=== PATIENT | male | born 1950 | race Two or more races ===

== ENCOUNTER 2016-11-13 17:13 | Emergency (ER) | payer SELFPAY ==
[2016-11-13 17:23] VITALS: BMI 25.9
[2016-11-13] MEDS ORDERED: ACETAMINOPHEN 325 MG TABLET (FP) ONE (17:56)
[2016-11-13] MEDS ORDERED: SODIUM CHLORIDE 0.9% 1000 ML INFUS.BAG IV STA (18:21)
--- NOTE | 2016-11-13 18:30 | PDOC ---
History of Present Illness - General History Source: Friend Exam Limitations: No Limitations - History of Present Illness Initial Comments: 11/13/16 20:37 The patient is a 66 year old male, with no significant past medical history who presents to the emergency department with chest pain, fever and headache for the past 4 days. The patient reports L sided chest pain, nonradiating, 5/10 in severity with no associated symptoms. Patient states pain is alleviated with deep inspiration. Patient presents to the ED with son for further evaluation.Patient describes frontal headache with no associated light/sound sensitivity,nausea, vomiting or neck stiffness. Patient denies SOB or cough. Patient denies any recent travel or sick contacts. Upon arrival, vital signs significant for 102.9 and HR of 109. Allergies: NKA Past surgical history: None Social history: None PCP: Has not visited one in 5 years <Selena Pérez - Last Filed: 11/13/16 22:04> <Yo Gutierrez - Last Filed: 11/13/16 23:30> - General Chief Complaint: Chest Pain Stated Complaint: CHEST PAIN Time Seen by Provider: 11/13/16 17:39 Past History <Selena Pérez - Last Filed: 11/13/16 22:04> - Past Medical History Other medical history: denies. - Psycho/Social/Smoking Cessation Hx Suicidal Ideation: No Smoking History: Never smoked <Yo Gutierrez - Last Filed: 11/13/16 23:30> - Past Medical History Allergies/Adverse Reactions: Allergies Allergy/AdvReac Type Severity Reaction Status Date / Time No Known Allergies Allergy Verified 11/13/16 17:19 Home Medications: Ambulatory Orders Levofloxacin [Levaquin -] 500 mg PO DAILY #10 tablet 11/13/16 Review of Systems - Review of Systems Able to Perform ROS?: Yes Comments:: 11/13/16 20:37 CONSTITUTIONAL: + fever. + fatigue EYES: No visual changes ENT: No ear pain, no sore throat CARDIOVASCULAR: + chest pain. No palpitations RESPIRATORY: No cough, no SOB GI: No abdominal pain, no nausea, no vomiting, no constipation, no diarrhea GENITOURINARY: No dysuria, no frequency, no hematuria MUSKULOSKELETAL: No back pain, no joint pain, no myalgias SKIN: No rash NEURO: + headache <Selena Pérez - Last Filed: 11/13/16 22:04> *Physical Exam - Vital Signs Last Vital Signs Temp Pulse Resp BP Pulse Ox 101.6 F H 97 H 18 107/62 97 11/13/16 19:26 11/13/16 19:26 11/13/16 19:26 11/13/16 19:26 11/13/16 19:26 - Physical Exam Comments: 11/13/16 20:38 CONSTITUTIONAL: Well-appearing; well-nourished; in no apparent distress HEAD: Normocephalic; atraumatic EYES: PERRL; EOM intact. No photophobia. ENMT: External appears normal; normal oropharynx NECK: (-)Negative Kernig brudzinski sign. Supple; nontender; no cervical lymphadenopathy CARD: +Tachycrdic. +Regular. +3/6 Systolic murmur.Normal S1, S2; No rubs, or gallops RESP: Normal chest excursion with respiration; breath sounds clear and equal bilaterally; no wheezes, rhonchi, or rales ABD: Soft, non-distended; non-tender; no palpable organomegaly, no palpable hernias EXT: Normal ROM in all four extremities; non-tender to palpation; distal pulses intact SKIN: Warm, dry, no petechiae. NEURO: No focal neurological deficiencies. <BetoSelena - Last Filed: 11/13/16 22:04> - Vital Signs Last Vital Signs Temp Pulse Resp BP Pulse Ox 102.9 F H 106 H 18 122/71 94 L 11/13/16 17:19 11/13/16 17:35 11/13/16 17:35 11/13/16 17:35 11/13/16 18:11 <Yo Gutierrez - Last Filed: 11/13/16 23:30> ED Treatment Course - LABORATORY CBC & Chemistry Diagram: 11/13/16 18:35 11/13/16 18:35 - ADDITIONAL ORDERS Additional order review: Laboratory Results 11/13/16 11/13/16 11/13/16 18:46 18:35 18:35 INR PTT (Actin FS) VBG pH 7.44 H POC VBG pCO2 39.2 POC VBG pO2 30.5 Mixed VBG HCO3 26.1 H Sodium Potassium Chloride Carbon Dioxide Anion Gap BUN Creatinine Creat Clearance w eGFR Random Glucose Lactic Acid 1.3 Calcium Total Bilirubin AST ALT Alkaline Phosphatase Creatine Kinase Creatine Kinase Index CK-MB (CK-2) Troponin I Total Protein Albumin Urine Color Urine Appearance Urine pH Ur Specific [place] Urine Protein Urine Glucose (UA) Urine Ketones Urine Blood Urine Nitrite Urine Bilirubin Urine Urobilinogen Ur Leukocyte Esterase Urine RBC Urine WBC Urine Mucus Blood Type A POSITIVE Antibody Screen Negative 11/13/16 11/13/16 11/13/16 18:35 18:35 18:35 INR 1.32 H PTT (Actin FS) 34.8 H VBG pH POC VBG pCO2 POC VBG pO2 Mixed VBG HCO3 Sodium 132 L Potassium 4.2 Chloride 99 Carbon Dioxide 25 Anion Gap 8 BUN 17 Creatinine 1.0 Creat Clearance w eGFR > 60 Random Glucose 167 H Lactic Acid Calcium 8.5 Total Bilirubin 0.9 AST 25 ALT 40 Alkaline Phosphatase 66 Creatine Kinase 249 Creatine Kinase Index 0.4 CK-MB (CK-2) < 1.000 Troponin I < 0.02 Total Protein 7.8 Albumin 3.5 Urine Color Yellow Urine Appearance Clear Urine pH 5.0 Ur Specific [place] 1.020 Urine Protein Negative Urine Glucose (UA) 2+ H Urine Ketones Trace H Urine Blood 1+ H Urine Nitrite Negative Urine Bilirubin Negative Urine Urobilinogen Negative Ur Leukocyte Esterase Negative Urine RBC None Urine WBC 1 Urine Mucus Rare Blood Type Antibody Screen 11/13/16 18:35 RBC 4.17 MCV 92.7 MCHC 34.3 RDW 13.6 MPV 8.9 Neutrophils % 74.7 Lymphocytes % 16.2 Monocytes % 8.9 Eosinophils % 0.0 Basophils % 0.2 - Medications Given in the ED: ED Medications Discontinued Medications Generic Name Dose Route Start Last Admin Trade Name Freq PRN Reason Stop Dose Admin Acetaminophen 975 mg 11/13/16 19:12 11/13/16 18:00 Tylenol - PO 11/13/16 19:13 975 mg NOW ONE Administration Sodium Chloride 500 ml 11/13/16 18:21 11/13/16 18:25 Normal Saline - IV 11/13/16 18:22 500 ml ONCE STA Administration <Selena Pérez - Last Filed: 11/13/16 22:04> - LABORATORY CBC & Chemistry Diagram: 11/13/16 18:35 11/13/16 18:35 <Yo Gutierrez - Last Filed: 11/13/16 23:30> Medical Decision Making - Medical Decision Making 11/13/16 22:01 Dr. Wells paged via phone answering service. Awaiting call back. 11/13/16 22:04 Dr. Wells responded the page and the patient's case was discussed. <Selena Pérez - Last Filed: 11/13/16 22:04> - Medical Decision Making 11/13/16 21:36 Patient is a well-appearing 66-year-old male who presents to the ER with fever for the past 4 days, mild frontal headache and nonpleuritic left-sided chest discomfort. In the ER, patient is awake and alert, mildly tachycardic and febrile to 102.9. Serial physical exams reveal no evidence of meningismus, lungs are clear, there is no abdominal tenderness, no lower extremity edema or petechial rash. CBC is within normal limit. CMP is unremarkable. Urinalysis reveals no evidence of pyuria. Chest x-ray revealed elevated left hemidiaphragm and some linear atelectasis on the right. Patient underwent CTA of chest which revealed a wedge-shaped infiltrate to the left upper lobe which may represent an infarct versus infiltrate. The study was suboptimal for PE. Patient's currently receiving ceftriaxone and Zithromax. i discussed the CT findings with the patient and advised him of the need for admission. He is expressed understanding of his medical condition but is steadfastly refusing. I used a [employer] cistern room operator #[id number] and explained the danger associated with the patient 's condition which includes but is not limited to severe infection, recurrent pulmonary emboli and pulmonary infarctions and . Patient's expressed understanding but is still refusing. Patient's son was noted to be at bedside and also expressed understanding the patient's condition. Patient's friend was present at bedside as well and expressed understanding patient's condition as well will discharge with Levaquin by mouth with urgent follow-up. <Yo Gutierrez - Last Filed: 11/13/16 23:30> *DC/Admit/Observation/Transfer - Attestations Scribe Attestion: 11/13/16 20:40 Documentation prepared by Selena Pérez, acting as medical clerical assistant for Yo Gutierrez MD <Selena Pérez - Last Filed: 11/13/16 22:04> - Attestations Physician Attestion: 11/13/16 21:36 The documentation was prepared by the scribe under my direct supervision. I have reviewed the documentation which correctly represents the findings, medical decision-making and critical action taken by me. <Yo Gutierrez - Last Filed: 11/13/16 23:30> Diagnosis at time of Disposition: Pneumonia Qualifiers: Pneumonia type: due to unspecified organism Laterality: left Lung location: upper lobe of lung Qualified Code(s): J18.1 - Lobar pneumonia, unspecified organism - Discharge Dispostion Disposition: AGAINST MEDICAL ADVICE Condition at time of disposition: Fair - Referrals Referrals: [facility] [Provider Group] - Patient Instructions Printed Discharge Instructions: DI for Pneumonia -- Adult Additional Instructions: Your leaving AGAINST MEDICAL ADVICE. You're at risk for severe infection, blood clots in for the lung damage and even . Take antibiotics as directed. Follow-up with medical clinic promptly. Return immediately for worsening symptoms. Print Language: PANAMANIAN
[2016-11-13 18:47] LABS: VENOUS PH 7.44 (7.32-7.42)
[2016-11-13 18:50] LABS: URINE APPEARANCE CLEAR; URINE BILIRUBIN NEGATIVE (NEGATIVE); URINE BLOOD 1+ (NEGATIVE); URINE COLOR YELLOW; URINE GLUCOSE (UA) 2+ (NEGATIVE); URINE KETONE TRACE (NEGATIVE); URINE LEUK ESTERASE NEGATIVE (NEGATIVE); URINE NITRITE NEGATIVE (NEGATIVE); URINE PROTEIN NEGATIVE (NEGATIVE); URINE UROBILINOGEN NEGATIVE mg/dL (0.2-1.0)
[2016-11-13 18:50] LABS: VENOUS BLOOD GAS HCO3 26.1 meq/L (19-25)
[2016-11-13 18:54] LABS: BASOPHIL 0.2 % (0-2.0); MCH 31.8 pg (25.7-33.7); MCHC 34.3 g/dl (32.0-35.9); MEAN CELL VOLUME 92.7 fl (80-96); MEAN PLT VOLUME 8.9 fl (7.5-11.1); NEUTROPHILS 74.7 % (42.8-82.8); PLATELET COUNT 235 K/MM3 (134-434); RDW 13.6 % (11.9-15.9); WHITE BLOOD COUNT 11.9 K/mm3 (4.0-10.0)
[2016-11-13 18:55] LABS: URINE MUCUS RARE; URINE WBC 1 /hpf (3-5)
[2016-11-13 19:01] LABS: INR 1.32 (0.82-1.09); PROTHROMBIN TIME (PATIENT) 14.6 SEC (9.98-11.88)
[2016-11-13 19:03] LABS: ALBUMIN 3.5 g/dl (3.4-5.0); ANION GAP 8 (8-16); CALCIUM 8.5 mg/dL (8.5-10.1); CO2 25 mmol/L (21-32); GLUCOSE,RANDOM 167 mg/dL (74-106); SGOT/AST 25 U/L (15-37); SGPT/ALT 40 U/L (12-78)
[2016-11-13 19:04] LABS: ACTIVATED PTT 34.8 SECONDS (26.9-34.4)
[2016-11-13 19:06] LABS: ALK PHOS 66 U/L (45-117); BILIRUBIN,TOTAL 0.9 mg/dL (0.2-1.0); CPK 249 IU/L (39-308); TOT PROT 7.8 g/dl (6.4-8.2); TROPONIN I < 0.02 ng/ml (0.00-0.05)
[2016-11-13] MEDS ORDERED: ACETAMINOPHEN 500 MG TABLET (FP) PO ONE (19:12)
[2016-11-13] MEDS ORDERED: SODIUM CHLORIDE 1,000 ML IV STA (20:59)
[2016-11-13] MEDS ORDERED: CEFTRIAXONE 1 GM in DEXTROSE 5%-WATER - 50 ML IVPB ONE (21:07)
[2016-11-13] MEDS ORDERED: AZITHROMYCIN IVPB 500 MG in DEXTROSE 5%-WATER - 250 ML IVPB ONE (21:07)
[2016-11-13] MEDS ORDERED: CEFTRIAXONE 50 ML ONE (21:27)
[2016-11-13] MEDS ORDERED: AZITHROMYCIN IVPB 250 ML IVPB ONE (21:28)
[2016-11-13 23:40] VITALS: BP 107/62; PULSE 82; TEMP 98.5
--- NOTE | 2016-11-15 13:54 | EKG ---
Test Reason : Blood Pressure : / mmHG Vent. Rate : 105 BPM Atrial Rate : 105 BPM P-R Int : 182 ms QRS Dur : 084 ms QT Int : 318 ms P-R-T Axes : 044 005 021 degrees QTc Int : 420 ms SINUS TACHYCARDIA POSSIBLE LEFT ATRIAL ENLARGEMENT BORDERLINE ECG NO PREVIOUS ECGS AVAILABLE Confirmed by ALLISON BIGGS MD ([id number]) on 11/15/2016 1:54:20 PM Referred By: Confirmed By:ALLISON BIGGS MD
== END 2016-11-13 23:40 | disposition left against medical advice (07) ==
LOC: JER 17:13
DX: J18.1 Lobar pneumonia, unspecified organism (principal)
CPT/HCPCS: 36415; 71020-TC; 71275-TC; 80053; 81003; 81015; 82553; 82803; 83605; 84484; 85025; 85610; 85730; 86850; 86900; 86901; 87040; 87086; 93005; 93010; 99284-25

== ENCOUNTER 2017-02-22 19:25 | Emergency (ER) | payer OTHER ==
[2017-02-22 19:37] VITALS: BP 137/91; PULSE 88; TEMP 99.5; BMI 23.9
--- NOTE | 2017-02-22 19:42 | PDOC ---
History of Present Illness - General History Source: Patient Exam Limitations: No Limitations - History of Present Illness Initial Comments: 02/22/17 19:46 The patient is a 67-year-old male, with a significant past medical history of HTN (not on any medication), who presents to the ED with a sore throat since Tuesday. Pt measured his temperature at home to be 101 and states that he has been taking Advil. He is also experiencing difficulty swallowing and speaking due to progressively worsening throat pain. Daughter advised the pt to come to the ED because he had recent case of pneumonia in November of this year. He reports decrease in appetite. He denies any nausea, vomiting, diarrhea, or abdominal pain. He denies any urinary changes or changes in his bowel movements. PAST MEDICAL HISTORY: HTN (not on any medication) PAST SURGICAL HISTORY: no significant history FAMILY HISTORY: no pertinent history SOCIAL HISTORY: Pt lives with family. MEDICATIONS: reviewed ALLERGIES: As per nursing notes General: (+)loss of appetite. No fevers or chills, no weakness, no weight loss HEENT: (+)Sore throat, difficulty swallowing, difficulty speaking. No change in vision. No ear pain CardioVascular: No chest pain or shortness of breath Respiratory:No cough, or wheezing. Gastrointestinal: no nausea, vomiting, diarrhea or constipation, No rectal bleeding Genitourinary: No dysuria, hematuria, or frequency Musculoskeletal: No joint or muscle pain or swelling Neurologic: No headache, vertigo, dizziness or loss of consciousness Psychiatric: nor depression Skin: No rashes or easy bruising Endocrine: no increased thirst or abnormal weight change Allergic: no skin or latex allergy All other systems reviewed and normal GENERAL: The patient is awake, alert, and fully oriented, in no acute distress. HEAD: Normal with no signs of trauma. NECK/THROAT: (+)Erythema noted in posterior oropharynx with minimal amount of exudates. Uvula midline. Able to handle secretions. No lymphadenopathy. EYES: Pupils equal, round and reactive to light, extraocular movements intact, sclera anicteric, conjunctiva clear. EXTREMITIES: Normal range of motion, no edema. NEUROLOGICAL: Normal speech, normal gait. PSYCH: Normal mood, normal affect. SKIN: Warm, Dry, normal turgor, no rashes or lesions noted. <Anamika Damon - Last Filed: 02/22/17 20:08> - General History Source: Patient Exam Limitations: No Limitations - History of Present Illness Initial Comments: A portion of this note was documented by scribe services under my direction. I have reviewed the details of the note, within reason, and agree with the documentation. The case summary and management plan written by me. Assessment and plan: This is a 67-year-old male with history of strep pharyngitis in the past 2 comes in complaining of sore throat and fever with no other symptoms. Patient denies any chest pain, cough, congestion. Patient is complaining that it is difficult for him to eat and he has had some loss of appetite as a result of the fever. Patient's last fever at home was 101 at 11 AM this morning. Patient had a rapid strep done that was negative Patient was reassured that this is most likely a viral continue to take supportive measures such as Tylenol or Motrin for the fevers, plenty of fluids and rest <Milagros Gutierrez I - Last Filed: 02/22/17 20:16> - General Chief Complaint: Sore Throat Stated Complaint: SORE THROAT, H/O FEVER Time Seen by Provider: 02/22/17 19:27 Past History <Anamika Damon - Last Filed: 02/22/17 20:08> - Past Medical History COPD: No Other medical history: H/O PNEUMONIA - Suicide/Smoking/Psychosocial Hx Smoking History: Never smoked Have you smoked in the past 12 months: No Information on smoking cessation initiated: No Hx Alcohol Use: (nightly) Substance Use Type: None <Milagros Gutierrez I - Last Filed: 02/22/17 20:16> - Past Medical History Allergies/Adverse Reactions: Allergies Allergy/AdvReac Type Severity Reaction Status Date / Time No Known Allergies Allergy Verified 02/22/17 19:26 Home Medications: Ambulatory Orders Garlic 1 each PO DAILY 02/22/17 Ibuprofen [Advil -] 200 mg PO ASDIR 02/22/17 Multivit-Min/FA/Lycopen/Lutein [Centrum Silver Tablet] 1 each PO DAILY 02/22/17 Review of Systems - Review of Systems Able to Perform ROS?: Yes <Anamika Damon - Last Filed: 02/22/17 20:08> *Physical Exam - Vital Signs Last Vital Signs Temp Pulse Resp BP Pulse Ox 99.5 F 88 18 137/91 96 02/22/17 19:25 02/22/17 19:25 02/22/17 19:25 02/22/17 19:25 02/22/17 19:25 <Anamika Damon - Last Filed: 02/22/17 20:08> - Vital Signs Last Vital Signs Temp Pulse Resp BP Pulse Ox 99.5 F 88 18 137/91 96 02/22/17 19:25 02/22/17 19:25 02/22/17 19:25 02/22/17 19:25 02/22/17 19:25 <Milagros Gutierrez I - Last Filed: 02/22/17 20:16> *DC/Admit/Observation/Transfer - Attestations Scribe Attestion: 02/22/17 19:51 Documentation prepared by Anamika Damon, acting as medical underwriter for Milagros Gutierrez MD. <Anamika Damon - Last Filed: 02/22/17 20:08> - Discharge Dispostion Admit: No <Milagros Gutierrez I - Last Filed: 02/22/17 20:16> Diagnosis at time of Disposition: Acute viral pharyngitis - Discharge Dispostion Disposition: HOME Condition at time of disposition: Stable - Patient Instructions Additional Instructions: Tylenol or Motrin as needed for fevers body aches or sore throat. Try to drink plenty of fluids and stay well-hydrated. Rest at home and no work in tell you have no fever for 24 hours without having to take any medication. Return to the emergency department immediately with ANY new, persistent or worsening symptoms. Continue any medications as previously prescribed by your physician. You should follow up with your primary doctor as soon as possible regarding today's emergency department visit. . Please make sure your doctor reviews the results of your emergency evaluation. Thank you for coming to the Emergency Department today for your care. It was a pleasure to see you today. Please note that your evaluation is INCOMPLETE until you follow-up with your doctor.
[2017-02-22] MEDS ORDERED: ACETAMINOPHEN 500 MG TABLET (FP) PO ONE (20:09)
[2017-02-22] MEDS ORDERED: ACETAMINOPHEN 500 MG TABLET (FP) ONE (20:17)
== END 2017-02-22 20:26 | disposition home or self-care (01) ==
LOC: FER 19:25
DX: J02.8 Acute pharyngitis due to other specified organisms (principal); B97.89 Other viral agents as the cause of diseases classified elsewhere; I10 Essential (primary) hypertension
CPT/HCPCS: 87070; 87430; 99283-25